=== PATIENT | female | born 1985 | race Two or more races ===

== ENCOUNTER 2018-07-03 13:15 | Inpatient (IN) | payer OTHER ==
[~2018-07-03] VITALS: Ht 160 cm; Wt 61.7 kg
[2018-07-03] MEDS ORDERED: ENBREL25 MG/0.5 (16:12)
[2018-07-03] MEDS ORDERED: KENALOG100 GM (16:12)
[2018-07-09] MEDS ORDERED: DOXYCYCLINE HY100 M2 PO (08:13)
== END 2018-07-12 13:42 | DRG 470 ==
LOC: SURH 07-09 06:41 → O/R 07-09 06:41 → SURG 07-09 10:00 → SURH 07-09 19:38
PROVIDERS: ADMIT Orthopaedic Surgery
PROC: 3E0F7GC Introduction of Other Therapeutic Substance into Respiratory Tract, Via Natural or Artificial Opening (ICD-10-PCS; 2018-07-09)
PROC: 0SRD0J9 Replacement of Left Knee Joint with Synthetic Substitute, Cemented, Open Approach (ICD-10-PCS; principal; 2018-07-09 10:00)
DX: M17.12 Unilateral primary osteoarthritis, left knee (principal); D62 Acute posthemorrhagic anemia; M06.89 Other specified rheumatoid arthritis, multiple sites

== ENCOUNTER 2018-07-08 14:47 | Outpatient (CLI) | payer OTHER ==
[~2018-07-08 14:47] MED LIST: ENBREL25 MG/0.5; KENALOG100 GM
[2018-07-09] MEDS ORDERED: DOXYCYCLINE HY100 M2 PO (08:13)
== END 2018-07-08 14:49 | disposition home or self-care (01) ==
LOC: RAD 14:47
DX: M25.561 Pain in right knee (principal); M25.562 Pain in left knee

== ENCOUNTER 2023-09-30 18:00 | Emergency (ER) | payer OTHER ==
[~2023-09-30] VITALS: Ht 160 cm; Wt 63.5 kg
[~2023-09-30 18:00] MED LIST changes: +DOXYCYCLINE HY100 M2 PO
[2023-09-30] MEDS ORDERED: 0.9 % SODIUM CHLORIDE 1,000 ML IV ONE (20:00)
[2023-09-30] MEDS ORDERED: HYOSCYAMINE SULFATE 0.125 MG TAB.SUBL PO ONE (20:00)
[2023-09-30] MEDS ORDERED: ONDANSETRON HCL 4 MG in 0.9 % SODIUM CHLORIDE 50 ML IV ONE (20:00)
[2023-09-30] MEDS ORDERED: FAMOTIDINE/PF 20 MG in 0.9 % SODIUM CHLORIDE 8 ML IV PUSH ONE (20:00)
[2023-09-30] MEDS ORDERED: HYOSCYAMINE SULFATE 0.125 MG TAB.SUBL ONE (20:30)
[2023-09-30] MEDS ORDERED: ONDANSETRON HCL 2 MG/ML VIAL ONE (20:30)
[2023-09-30] MEDS ORDERED: FAMOtidine 200mg/20ml VIAL ONE (20:31)
[2023-09-30 20:41] LABS: HEMATOCRIT 33.7 % (36.0-45.00); HEMOGLOBIN 11.3 g/dL (12.0-15.00); MEAN CELL VOLUME 83.1 fL (80.00-100.00); MEAN CORPUSCULAR HEMOGLOBIN 27.9 pg (27.00-32.0); MEAN CORPUSCULAR HGB CONC 33.6 g/dl (32.0-36.0); PLATELET COUNT 228 K/uL (150-450); RED BLOOD COUNT 4.05 M/uL (4.00-6.00); RED CELL DISTRIBUTION WIDTH 13.4 % (11.5-14.5)
[2023-09-30 20:55] LABS: PH,URINE 5.5 (5.0-8.0); URINE APPEARANCE Clear; URINE BILIRRUBIN Negative (NEGATIVE); URINE BLOOD Large; URINE COLOR Yellow; URINE GLUCOSE Negative (NEGATIVE); URINE LEUKOCYTE Negative; URINE NITRATE Negative; URINE PROTEIN Negative (NEGATIVE)
[2023-09-30 21:05] LABS: URINE EPITHELIAL CELLS 12.2 uL (0.0-38.8); URINE WBC 10.2 uL (0.0-23.2)
[2023-09-30 21:13] LABS: ALBUMIN 3.7 gm/dL (3.4-5.0); BILIRUBIN TOTAL 0.42 mg/dL (0.3-1.2); CALCIUM 9.2 mg/dL (8.5-10.1); CREATININE SERUM 0.44 mg/dL (0.55-1.02); GFR 161.79; GLOBULINA 4.8 G/DL (2.4-3.5); POTASSIUM 3.69 mEq/L (3.5-5.1); TOTAL PROTEIN 8.5 gm/dL (6.4-8.2)
== END 2023-09-30 22:57 | disposition home or self-care (01) ==
LOC: ER 18:01
PROVIDERS: General Practice
DX: K52.9 Noninfective gastroenteritis and colitis, unspecified (principal); R10.84 Generalized abdominal pain

== ENCOUNTER → 2023-11-12 | Emergency (ER) | payer OTHER ==
[~2023-11-12] VITALS: Ht 160 cm; Wt 63.5 kg
[~2023-11-12] MED LIST changes: +0.9 % SODIUM CHLORIDE 500 ML IV ONE; +METHYLPREDNISOLONE SOD SUCC 125 MG VIAL IV ONE; +METHYLPREDNISOLONE SOD SUCC 125 MG VIAL ONE
[2023-11-12 15:33] LABS: HEMOGLOBIN 11.6 g/dL (12.0-15.00); MEAN CORPUSCULAR HEMOGLOBIN 27.4 pg (27.00-32.0); PLATELET COUNT 201 K/uL (150-450); RED BLOOD COUNT 4.22 M/uL (4.00-6.00); RED CELL DISTRIBUTION WIDTH 13.7 % (11.5-14.5)
[2023-11-12 15:48] LABS: CALCIUM 8.9 mg/dL (8.5-10.1); CREATININE SERUM 0.48 mg/dL (0.55-1.02); GFR 146.34; POTASSIUM 4.06 mEq/L (3.5-5.1)
== END | disposition home or self-care (01) ==
LOC: ER 13:21
PROVIDERS: General Practice
DX: T50.995A Adverse effect of other drugs, medicaments and biological substances, initial encounter (principal); Y92.89 Other specified places as the place of occurrence of the external cause; Z88.6 Allergy status to analgesic agent